=== PATIENT | female | born 1970 ===

== ENCOUNTER 2017-02-20 16:31 | Observation (INO) | payer MEDICAID ==
[2017-02-20 18:04] LABS: ADD MANUAL DIFF? NO
[2017-02-20 18:12] LABS: PH,URINE 6.5 (4.7-8.0); URINE BILIRUBIN NEGATIVE (NEGATIVE); URINE BLOOD SMALL (NEGATIVE); URINE GLUCOSE (UA) NEGATIVE (NEGATIVE); URINE KETONE NEGATIVE (NEGATIVE); URINE LEUKOCYTE ESTERASE NEGATIVE Leu/uL (NEGATIVE); URINE PROTEIN NEGATIVE mg/dL (<30 mg/dL); URINE UROBILINOGEN 0.2 E.U./dL (<1 E.U./dL)
[2017-02-20 18:15] LABS: ALB/GLOB RATIO 1.1 (1.1-1.8); ALKALINE PHOSPHATASE 62 U/L (38-133); ALT/SGPT 30 U/L (7-56); AST/SGOT 27 U/L (15-39); BILIRUBIN,TOTAL 0.6 mg/dL (0.2-1.3); BLOOD UREA NITROGEN 9 mg/dL (7-21); CARBON DIOXIDE 28 mmol/L (21-33); CHLORIDE 100 mmol/L (98-107); GFR AFRICAN-AMERICAN > 60; GLUCOSE,RANDOM 90 mg/dL (70-110); SODIUM 137 mmol/L (132-148); TOTAL PROTEIN 7.9 g/dL (5.8-8.3)
[2017-02-20 18:16] LABS: URINE APPEARANCE CLEAR (CLEAR); URINE COLOR YELLOW (YELLOW)
--- NOTE | 2017-02-20 18:17 | ED PDOC ---
Arrival/HPI <Twan Tanner - Last Filed: 02/20/17 18:12> <DejahSotoraymon - Last Filed: 02/20/17 19:43> - General Chief Complaint: High Blood Pressure Time Seen by Provider: 02/20/17 17:48 - History of Present Illness Narrative History of Present Illness (Text): 02/20/17 18:12 46-year-old female with one-day duration retrosternal chest discomfort described as pressure. She also reports that she has been having tingling and paresthesias to her left upper extremity and left face for the last week. Patient also states that her blood pressure has been more elevated than usual despite taking her losartan regularly. Denies ripping or tearing sensation/ radiation to the back. No other complaints. (Twan Tanner) Past Medical History - Infectious Disease Hx of Infectious Diseases: None - Tetanus Immunization Tetanus Immunization: Unknown - Reproductive Menopause: No - Past Medical History Past Medical History: No Previous - Cardiac Hx Cardiac Disorders: Yes Hx Hypertension: Yes - Pulmonary Hx Respiratory Disorders: No - Neurological Hx Neurological Disorder: Yes Hx Migraine: Yes Other/Comment: sinus infections - HEENT Hx HEENT Disorder: No - Renal Hx Renal Disorder: No - Endocrine/Metabolic Hx Endocrine Disorders: No - Hematological/Oncological Hx Blood Disorders: No - Integumentary Hx Dermatological Disorder: No - Musculoskeletal/Rheumatological Hx Musculoskeletal Disorders: Yes Hx Arthritis: Yes (RA) - Gastrointestinal Hx Gastrointestinal Disorders: No - Genitourinary/Gynecological Hx Genitourinary Disorders: No - Psychiatric Hx Psychophysiologic Disorder: No Hx Substance Use: No - Surgical History Hx Section: Yes Hx Hysterectomy: Yes Hx Tubal Ligation: Yes Other/Comment: kidney stones - Anesthesia Hx Anesthesia: Yes Hx Anesthesia Reactions: No Hx Malignant Hyperthermia: No - Suicidal Assessment Feels Threatened In Home Enviroment: No <Twan Tanner - Last Filed: 02/20/17 18:12> Family/Social History Family/Social History: Unknown Family HX Smoking Status: Never Smoked Hx Alcohol Use: No Hx Substance Use: No Hx Substance Use Treatment: No <Twan Tanner - Last Filed: 02/20/17 18:12> Allergies/Home Meds <Twan Tanner - Last Filed: 02/20/17 18:12> <Marj Pond - Last Filed: 02/20/17 19:43> Allergies/Adverse Reactions: Allergies seasona Allergy (Uncoded 02/20/17 17:11) CONGESTION Home Medications: Home Meds Medication Instructions Recorded Confirmed Meclizine HCl [Antivert/25] 25 mg PO BID PRN 06/18/14 02/20/17 Acetaminophen [Tylenol 325mg tab] 500 mg PO 02/20/17 Cetirizine HCl [Allergy Relief] 10 mg PO DAILY 02/20/17 02/20/17 Hctz 12.5 12.5 mg PO 02/20/17 Losartan Potassium [Cozaar] 50 mg PO DAILY 02/20/17 02/20/17 Nortriptyline HCl [Pamelor] 10 mg PO DAILY 02/20/17 02/20/17 Zaleplon [Sonata] 5 mg PO PRN PRN 02/20/17 02/20/17 Physical Exam Vital Signs Reviewed: Yes Temperature: Afebrile Blood Pressure: Hypertensive Pulse: Regular Respiratory Rate: Normal Appearance: Positive for: Well-Appearing Pain Distress: None Mental Status: Positive for: Alert and Oriented X 3 <JuliananadiyaTwan - Last Filed: 02/20/17 18:12> <Marj Pond - Last Filed: 02/20/17 19:43> - Physical Exam Narrative Physical Exam (Text): - Review of Systems Constitutional: Normal. absent: Fatigue, Weight Change, Fevers Eyes: Normal ENT: denies sore throat, denies tristhmus Respiratory: Normal. absent: SOB, Cough, Sputum Cardiovascular: Chest pain absent: Palpitations, Syncope Gastrointestinal: Normal. absent: Abdominal Pain, Diarrhea, Nausea, Vomiting Genitourinary: Normal. absent: Dysuria, Frequency, Hematuria, vaginal bleeding Musculoskeletal: Normal. absent: Arthralgias, Back Pain, Neck Pain Skin: no rashes, no erythema Neurological: Paresthesias absent: Focal Weakness Endocrine: Normal Hemo/Lymphatic: Normal Psychiatric: No suicidal or homicidal ideations Physical exam Patient appears age appropriate in no distress, speaking full sentences without difficulty - Systems Exam Head: Present: Atraumatic, Normocephalic Pupils: Present: PERRL Extroacular Muscles: Present: EOMI Conjunctiva: Present: Normal Mouth: Present: Moist Mucous Membranes Neck: Present: Normal Range of Motion. No: MIDLINE TENDERNESS, Paraspinal Tenderness Respiratory/Chest: Present: Clear to Auscultation, Good Air Exchange. No: Respiratory Distress, Accessory Muscle Use, Tachypneic Cardiovascular: Present: Regular Rate and Rhythm, Normal S1, S2, Peripheal Pulses Present. No: Murmurs Abdomen: Present: Normal Bowel Sounds. No: Tenderness, Distention, Peritoneal Signs, Rebound, Guarding Back: Present: Normal Inspection. No: Midline Tenderness, Paraspinal Tenderness Upper Extremity: Present: Normal Inspection. No: Cyanosis, Edema Lower Extremity: Present: Normal Inspection. No: Edema Neurological: Present: GCS=15, Speech Normal, cranial nerves II through XII fully intact with no cerebellar abnormality, neurosensory fully intact. No focal neurological deficits. Skin: Present: Warm, Dry, Normal Color. No: Rashes Lymphatic: Present: OX3, NI, NC Psychiatric: Present: Alert, Oriented x 3, Normal Insight, Normal Concentration (Twan Tanner) Vital Signs Temp Pulse Resp BP Pulse Ox 02/20/17 18:16 87 18 146/90 98 02/20/17 18:00 79 18 183/123 H 98 02/20/17 17:38 98.6 F 88 18 171/100 H 98 02/20/17 17:05 98.6 F 88 18 171/100 H 98 Medical Decision Making <Twan Tanner - Last Filed: 02/20/17 18:12> <Marj Pond - Last Filed: 02/20/17 19:43> ED Course and Treatment: 46-year-old female with a history of hypertension, with left upper extremity and facial paresthesias along with chest pressure and poorly controlled hypertension. No focal neurological deficits on physical examination. Aspirin, nitroglycerin ordered. EKG interpreted by ER physician. Normal sinus. No ST-segment elevations. Normal intervals. patient signed out to Dr. Pond in stable condition, pending labs, reeval, dispo (Twan Tanner) 02/20/17 19:39 Patient endorsed to me by Dr. Tanner with initial c/o of chest discomfort and L side paraesthesias for a week with unremarkable neuro exam with NIHSS of zero and symptoms x 1 week so not a tpa candidate. Given nitro and asa with improvement of cp and initially elevated BP - will need further observation on tele for further evaluation and treatment. Discussed with Dr. Kitchen for placement on the hospitalist service. (Marj Pond) - Lab Interpretations Lab Results: 02/20/17 17:51 02/20/17 17:51 Lab Results 02/20/17 18:00: Urine Color Yellow, Urine Appearance Clear, Urine pH 6.5, Ur Specific [place] 1.015, Urine Protein Negative, Urine Glucose (UA) Negative, Urine Ketones Negative, Urine Blood Small H, Urine Nitrate Negative, Urine Bilirubin Negative, Urine Urobilinogen 0.2, Ur Leukocyte Esterase Negative, Urine RBC 1 - 3, Urine WBC 0 - 2, Ur Epithelial Cells 3 - 4 02/20/17 17:51: WBC 6.8, RBC 3.88, Hgb 11.1 L, Hct 33.2 L, MCV 85.6, MCH 28.6, MCHC 33.4, RDW 14.6 H, Plt Count 265, MPV 9.5, Gran % 55.3, Lymph % (Auto) 31.7 , [place] % (Auto) 8.6 H, Eos % (Auto) 4.1, Baso % (Auto) 0.3, Gran # 3.73, Lymph # 2.1, [place] # 0.6, Eos # 0.3, Baso # 0.02, PT 10.4, INR 0.96, APTT 26.6, Sodium 137, Potassium 4.0, Chloride 100, Carbon Dioxide 28, Anion Gap 13, BUN 9, Creatinine 0.6, Est GFR ( Amer) > 60, Est GFR (Non-Af Amer) > 60, Random Glucose 90, Calcium 9.0, Total Bilirubin 0.6, AST 27, ALT 30, Alkaline Phosphatase 62, Lactate Dehydrogenase 529, Total Creatine Kinase 119, Troponin I < 0.01, NT-Pro-B Natriuret Pep 115, Total Protein 7.9, Albumin 4.2, Globulin 3.8, Albumin/Globulin Ratio 1.1 - RAD Interpretation Radiology Orders: 02/20/17 17:48 HEAD W/O CONTRAST [CT] Stat 02/20/17 17:49 CHEST ONE VIEW [RAD] Stat - Medication Orders Current Medication Orders: Discontinued Medications Aspirin (Aspirin Chewable) 324 mg PO STAT STA Stop: 02/20/17 17:49 Last Admin: 02/20/17 18:04 Dose: 324 MG Nitroglycerin (Nitrostat Sl Tab) 0.3 mg SL STAT STA Stop: 02/20/17 17:49 Last Admin: 02/20/17 18:04 Dose: 0.3 MG Disposition/Present on Arrival - Present on Arrival Any Indicators Present on Arrival: No History of DVT/PE: No History of Uncontrolled Diabetes: No Urinary Catheter: No History of Decub. Ulcer: No History Surgical Site Infection Following: None - Disposition Have Diagnosis and Disposition been Completed?: Yes Disposition Time: 19:00 Patient Plan: Admission <Twan Tanner - Last Filed: 02/20/17 18:12> - Present on Arrival Any Indicators Present on Arrival: No - Disposition Have Diagnosis and Disposition been Completed?: Yes Disposition Time: 19:25 Patient Plan: Observation, Telemetry <Marj Pond - Last Filed: 02/20/17 19:43> - Disposition Diagnosis: Chest pain Disposition: HOSPITALIZED Patient Problems: Current Active Problems Problem Status Diagnosed Chest pain Acute Condition: FAIR Discharge Instructions (ExitCare): Chest Pain (ED) Referrals: Yoselin Madrigal MD [Primary Care Provider] - Follow up with primary
[2017-02-20 18:18] LABS: BASO # 0.02 K/mm3 (0.0-2.0); BASO % 0.3 % (0.0-3.0); EOS # 0.3 (0.0-0.7); EOS % 4.1 % (1.5-5.0); GRAN # 3.73 (1.4-6.5); GRAN % 55.3 % (50.0-68.0); HEMATOCRIT 33.2 % (36.0-48.0); LYMPH # 2.1 (1.2-3.4); LYMPH % 31.7 % (22.0-35.0); MEAN CELL VOLUME 85.6 fL (80.0-105.0); MEAN CORPUSCULAR HEMOGLOBIN 28.6 pg (25.0-35.0); MEAN CORPUSCULAR HGB CONC 33.4 g/dl (31.0-37.0); MEAN PLATELET VOLUME 9.5 fl (7.0-11.0); MONO # 0.6 (0.1-0.6); MONO % 8.6 % (1.0-6.0); PLATELET COUNT 265 10^3/uL (120.0-450.0); RED CELL DISTRIBUTION WIDTH 14.6 % (11.5-14.5); WHITE BLOOD COUNT 6.8 10^3/ul (4.5-11.0)
[2017-02-20 18:19] LABS: INR 0.96 (0.93-1.08); PARTIAL THROMBOPLASTIN TIME 26.6 Seconds (23.7-30.8)
[2017-02-20 18:35] LABS: TROPONIN I < 0.01 ng/mL
[2017-02-20 19:00] LABS: URINE WBC 0 - 2 /hpf (0-6)
--- NOTE | 2017-02-20 19:00 | CT ---
PROCEDURE: CT HEAD WITHOUT CONTRAST. HISTORY: GARCIA, HTN COMPARISON: None available. TECHNIQUE: Axial computed tomography images were obtained through the head/brain without intravenous contrast. Radiation dose: Total exam DLP = 725 mGy-cm. This CT exam was performed using one or more of the following dose reduction techniques: Automated exposure control, adjustment of the mA and/or kV according to patient size, and/or use of iterative reconstruction technique. FINDINGS: HEMORRHAGE: No intracranial hemorrhage. BRAIN: No mass effect or edema. No atrophy or chronic microvascular ischemic changes. VENTRICLES: Unremarkable. No hydrocephalus. CALVARIUM: Unremarkable. PARANASAL SINUSES: Unremarkable as visualized. No significant inflammatory changes. MASTOID AIR CELLS: Unremarkable as visualized. No inflammatory changes. OTHER FINDINGS: None. IMPRESSION: Normal CT of the Head.
[2017-02-20 21:10] VITALS: O2SAT 99
--- NOTE | 2017-02-20 21:32 | CP.PCM.HP ---
<Meño Neal - Last Filed: 02/20/17 21:40> History of Present Illness - History of Present Illness History of Present Illness: 46 F with PMHx of vertigo, HTN, and fibromyalgia presented to [facility] 02/20/17 with complaints of chest pain x 3days. Pt states that she started to experience chest pain and discomfort on saturday described as a pressure discomfort, localized mid substernal, 6/10 in intensity that would worsen with coughing or exertions. She also noted that the chest discomfort it felt as if it was difficult to swallow. Pt reported that she has been checking her BP daily for the past month and it has recently remained elevated in the 170s/90s. She contacted her PMD who increased the dosage of her losartan 50->100mg daily. Pt also noted recent stress on account of sleep apnea and not getting enough sleep. She has been reporting of only sleeping 1-2hrs a night as her usually wakes her up for fear of dying in her sleep. Pt is to have a sleep study conducted to obtain the correct machine and mask, however has not had it done yet. In the ED, ppt received aspirin and nitro, with resolution of chest pain/discomfort symptoms. At the time of examination, pt denied fever, chills, sob, chest pains, palpitations, abdominal pains, n/v/d/c or urinary symptoms. PMHx: vertigo, HTN, sleep apnea, and fibromyalgia PSHx: SHx: Denied tobacco abuse, social etoh, and denied illicit drug use. LMP: Family Hx: Noncontributory Meds: review JAN Allergies: seasonal allergies PMD: Dr. Evans Present on Admission - Present on Admission Any Indicators Present on Admission: No History of DVT/PE: No History of Uncontrolled Diabetes: No Urinary Catheter: No Decubitus Ulcer Present: No Review of Systems - Review of Systems Review of Systems: as per HPI otherwise Negative Past Patient History - Infectious Disease Hx of Infectious Diseases: None - Tetanus Immunizations Tetanus Immunization: Unknown - Past Social History Smoking Status: Never Smoked - CARDIAC Hx Cardiac Disorders: Yes Hx Hypertension: Yes - PULMONARY Hx Respiratory Disorders: No - NEUROLOGICAL Hx Neurological Disorder: Yes Hx Migraine: Yes Other/Comment: sinus infections - HEENT Hx HEENT Problems: No - RENAL Hx Chronic Kidney Disease: No - ENDOCRINE/METABOLIC Hx Endocrine Disorders: No - HEMATOLOGICAL/ONCOLOGICAL Hx Blood Disorders: No - INTEGUMENTARY Hx Dermatological Problems: No - MUSCULOSKELETAL/RHEUMATOLOGICAL Hx Musculoskeletal Disorders: Yes Hx Arthritis: Yes (RA) - GASTROINTESTINAL Hx Gastrointestinal Disorders: No - GENITOURINARY/GYNECOLOGICAL Hx Genitourinary Disorders: No - PSYCHIATRIC Hx Psychophysiologic Disorder: No Hx Substance Use: No - SURGICAL HISTORY Hx Section: Yes Hx Hysterectomy: Yes Hx Tubal Ligation: Yes Other/Comment: kidney stones - ANESTHESIA Hx Anesthesia: Yes Hx Anesthesia Reactions: No Hx Malignant Hyperthermia: No Meds Allergies/Adverse Reactions: Allergies Allergy/AdvReac Type Severity Reaction Status Date / Time seasona Allergy CONGESTION Uncoded 02/20/17 17:11 Physical Exam - Constitutional Appears: Well - Head Exam Head Exam: ATRAUMATIC, NORMAL INSPECTION, NORMOCEPHALIC - Eye Exam Eye Exam: EOMI, Normal appearance, PERRL - ENT Exam ENT Exam: Mucous Membranes Moist, Normal Exam - Neck Exam Neck exam: Positive for: Normal Inspection - Respiratory Exam Respiratory Exam: Clear to Auscultation Bilateral, NORMAL BREATHING PATTERN - Cardiovascular Exam Cardiovascular Exam: REGULAR RHYTHM, +S1, +S2 - GI/Abdominal Exam GI & Abdominal Exam: Normal Bowel Sounds, Soft. absent: Tenderness - Extremities Exam Extremities exam: Positive for: normal inspection - Back Exam Back exam: NORMAL INSPECTION - Neurological Exam Neurological exam: Alert, CN II-XII Intact, Normal Gait, Oriented x3, Reflexes Normal - Psychiatric Exam Psychiatric exam: Normal Affect, Normal Mood - Skin Skin Exam: Dry, Intact, Normal Color, Warm Results - Vital Signs Recent Vital Signs: Last Vital Signs Temp 98.6 F 02/20/17 17:38 Pulse 81 02/20/17 21:09 Resp 19 02/20/17 21:09 BP 160/93 H 02/20/17 21:09 Pulse Ox 99 02/20/17 21:09 - Labs Result Diagrams: 02/20/17 17:51 02/20/17 17:51 Labs: Laboratory Results - last 24 hr 02/20/17 02/20/17 17:51 18:00 WBC 6.8 RBC 3.88 Hgb 11.1 L Hct 33.2 L MCV 85.6 MCH 28.6 MCHC 33.4 RDW 14.6 H Plt Count 265 MPV 9.5 Gran % 55.3 Lymph % (Auto) 31.7 [place] % (Auto) 8.6 H Eos % (Auto) 4.1 Baso % (Auto) 0.3 Gran # 3.73 Lymph # 2.1 [place] # 0.6 Eos # 0.3 Baso # 0.02 PT 10.4 INR 0.96 APTT 26.6 Sodium 137 Potassium 4.0 Chloride 100 Carbon Dioxide 28 Anion Gap 13 BUN 9 Creatinine 0.6 Est GFR ( Amer) > 60 Est GFR (Non-Af Amer) > 60 Random Glucose 90 Calcium 9.0 Total Bilirubin 0.6 AST 27 ALT 30 Alkaline Phosphatase 62 Lactate Dehydrogenase 529 Total Creatine Kinase 119 Troponin I < 0.01 NT-Pro-B Natriuret Pep 115 Total Protein 7.9 Albumin 4.2 Globulin 3.8 Albumin/Globulin Ratio 1.1 Urine Color Yellow Urine Appearance Clear Urine pH 6.5 Ur Specific [place] 1.015 Urine Protein Negative Urine Glucose (UA) Negative Urine Ketones Negative Urine Blood Small H Urine Nitrate Negative Urine Bilirubin Negative Urine Urobilinogen 0.2 Ur Leukocyte Esterase Negative Urine RBC 1 - 3 Urine WBC 0 - 2 Ur Epithelial Cells 3 - 4 Assessment & Plan - Assessment and Plan (Free Text) Assessment: 46 F with PMHx of vertigo, HTN, and fibromyalgia presented to [facility] 02/20/17 with complaints of chest pain x 3 days, currently without symptoms, admitted to tele obs to r/o acs. 1. Atypical Chest pain, resolved - Likely 2/2 sleep apnea - Tele obs - EKG: NSR @ 83 bpm - Trops neg x1, serial trops - Asa 81 mg daily - TSH - Lipid panel 2. Headache, resolved - CTH negative - continue to monitor 3. HTN - currently stable - Continue home meds 4. Chronic Urticari - Cetirizine 10mg daily 5. GI ppx - pepcid 6. DVT ppx - lovenox Seen reviewed and discussed with attending <Damian Kitchen P - Last Filed: 03/03/17 20:16> Results - Vital Signs Recent Vital Signs: Last Vital Signs Temp 98.5 F 02/21/17 12:00 Pulse 79 02/21/17 15:10 Resp 16 02/21/17 12:00 BP 172/104 H 02/21/17 15:10 Pulse Ox 99 02/20/17 21:09 - Labs Result Diagrams: 02/21/17 06:20 02/21/17 06:20 Attending/Attestation - Attestation I have personally seen and examined this patient.: Yes I have fully participated in the care of the patient.: Yes I have reviewed all pertinent clinical information: Yes
[2017-02-21 00:10] VITALS: BMI 34.7
[2017-02-21] MEDS: Acetaminophen 650mg/20.3ml solution UD PO PRN ×2 (03:55→08:07)
[2017-02-21 06:52] LABS: ADD MANUAL DIFF? NO
[2017-02-21 07:16] LABS: CHOLESTEROL 184 mg/dL (130-200)
[2017-02-21 07:17] LABS: BASO # 0.02 K/mm3 (0.0-2.0); BASO % 0.4 % (0.0-3.0); EOS # 0.3 (0.0-0.7); EOS % 5.3 % (1.5-5.0); GRAN # 2.78 (1.4-6.5); GRAN % 52.3 % (50.0-68.0); HEMATOCRIT 33.8 % (36.0-48.0); LYMPH # 1.7 (1.2-3.4); MEAN CELL VOLUME 85.1 fL (80.0-105.0); MEAN CORPUSCULAR HEMOGLOBIN 28.2 pg (25.0-35.0); MEAN CORPUSCULAR HGB CONC 33.1 g/dl (31.0-37.0); MEAN PLATELET VOLUME 9.9 fl (7.0-11.0); MONO # 0.5 (0.1-0.6); PLATELET COUNT 264 10^3/uL (120.0-450.0); RED CELL DISTRIBUTION WIDTH 14.6 % (11.5-14.5); WHITE BLOOD COUNT 5.3 10^3/ul (4.5-11.0)
[2017-02-21 08:42] LABS: ALB/GLOB RATIO 1.1 (1.1-1.8); ALKALINE PHOSPHATASE 56 U/L (38-133); ALT/SGPT 27 U/L (7-56); AST/SGOT 32 U/L (15-39); BILIRUBIN,TOTAL 0.6 mg/dL (0.2-1.3); BLOOD UREA NITROGEN 11 mg/dL (7-21); CALCIUM 8.8 mg/dL (8.4-10.5); CARBON DIOXIDE 27 mmol/L (21-33); CHLORIDE 100 mmol/L (98-107); GFR AFRICAN-AMERICAN > 60; GLUCOSE,RANDOM 90 mg/dL (70-110); POTASSIUM 3.6 mmol/L (3.6-5.0); SODIUM 136 mmol/L (132-148); TOTAL PROTEIN 7.6 g/dL (5.8-8.3)
[2017-02-21 09:01] LABS: TROPONIN I < 0.01 ng/mL
[2017-02-21] MEDS ORDERED: Enoxaparin 40 mg Syringe SC SCH (10:00)
--- NOTE | 2017-02-21 10:25 | RAD ---
PROCEDURE: CHEST RADIOGRAPH, 1 VIEW HISTORY: Chest pain. COMPARISON: 01/31/2015. FINDINGS: LUNGS: Clear. PLEURA: No pneumothorax or pleural fluid seen. CARDIOVASCULAR: No radiographic findings to suggest acute or significant cardiovascular disease. OSSEOUS STRUCTURES: No significant abnormalities. VISUALIZED UPPER ABDOMEN: Normal. OTHER FINDINGS: None. IMPRESSION: No active disease. No acute/significant interval changes.
--- NOTE | 2017-02-21 10:41 | CARD ---
APPROVED REPORT EKG Measurement Heart [id number] <Conclusion> Normal sinus rhythm T wave abnormality, consider anterolateral ischemia Abnormal ECG
--- NOTE | 2017-02-21 10:50 | CARD ---
APPROVED REPORT EKG Measurement Heart [id number] <Conclusion> Normal sinus rhythm Minimal voltage criteria for LVH, may be normal variant Borderline ECG
[2017-02-21 12:41] VITALS: RESP 16; TEMP 98.5
--- NOTE | 2017-02-21 13:54 | CP.PCM.DIS ---
<Jeane De La Garza - Last Filed: 02/21/17 15:47> Provider - Provider Date of Admission: 02/20/17 19:22 Attending physician: Pb Hector MD Primary care physician: Yoselin Madrigal MD Time Spent in preparation of Discharge (in minutes): 45 Diagnosis - Discharge Diagnosis (1) Chest pain Status: Acute (2) Vertigo Status: Chronic (3) Hypertension Status: Chronic (4) RADHA (obstructive sleep apnea) Status: Chronic Hospital Course - Lab Results Lab Results: Most Recent Lab Values WBC 5.3 10^3/ul (4.5-11.0) D 02/21/17 06:20 RBC 3.97 10^6/uL (3.5-6.1) 02/21/17 06:20 Hgb 11.2 gm/dL (12.0-16.0) L 02/21/17 06:20 Hct 33.8 % (36.0-48.0) L 02/21/17 06:20 MCV 85.1 fL (80.0-105.0) 02/21/17 06:20 MCH 28.2 pg (25.0-35.0) 02/21/17 06:20 MCHC 33.1 g/dl (31.0-37.0) 02/21/17 06:20 RDW 14.6 % (11.5-14.5) H 02/21/17 06:20 Plt Count 264 10^3/uL (120.0-450.0) 02/21/17 06:20 MPV 9.9 fl (7.0-11.0) 02/21/17 06:20 Gran % 52.3 % (50.0-68.0) 02/21/17 06:20 Lymph % (Auto) 32.0 % (22.0-35.0) 02/21/17 06:20 [place] % (Auto) 10.0 % (1.0-6.0) H 02/21/17 06:20 Eos % (Auto) 5.3 % (1.5-5.0) H 02/21/17 06:20 Baso % (Auto) 0.4 % (0.0-3.0) 02/21/17 06:20 Gran # 2.78 (1.4-6.5) 02/21/17 06:20 Lymph # 1.7 (1.2-3.4) 02/21/17 06:20 [place] # 0.5 (0.1-0.6) 02/21/17 06:20 Eos # 0.3 (0.0-0.7) 02/21/17 06:20 Baso # 0.02 K/mm3 (0.0-2.0) 02/21/17 06:20 PT 10.4 Seconds (9.9-11.8) 02/20/17 17:51 INR 0.96 (0.93-1.08) 02/20/17 17:51 APTT 26.6 Seconds (23.7-30.8) 02/20/17 17:51 Sodium 136 mmol/L (132-148) 02/21/17 06:20 Potassium 3.6 mmol/L (3.6-5.0) 02/21/17 06:20 Chloride 100 mmol/L (98-107) 02/21/17 06:20 Carbon Dioxide 27 mmol/L (21-33) 02/21/17 06:20 Anion Gap 13 (10-20) 02/21/17 06:20 BUN 11 mg/dL (7-21) 02/21/17 06:20 Creatinine 0.6 mg/dL (0.5-1.4) 02/21/17 06:20 Est GFR ( Amer) > 60 02/21/17 06:20 Est GFR (Non-Af Amer) > 60 02/21/17 06:20 Random Glucose 90 mg/dL (70-110) 02/21/17 06:20 Calcium 8.8 mg/dL (8.4-10.5) 02/21/17 06:20 Total Bilirubin 0.6 mg/dL (0.2-1.3) 02/21/17 06:20 AST 32 U/L (15-39) 02/21/17 06:20 ALT 27 U/L (7-56) 02/21/17 06:20 Alkaline Phosphatase 56 U/L (38-133) 02/21/17 06:20 Lactate Dehydrogenase 529 U/L (333-699) 02/20/17 17:51 Total Creatine Kinase 119 U/L (35-230) 02/20/17 17:51 Troponin I < 0.01 ng/mL 02/21/17 06:20 NT-Pro-B Natriuret Pep 115 pg/mL (0-450) 02/20/17 17:51 Total Protein 7.6 g/dL (5.8-8.3) 02/21/17 06:20 Albumin 4.0 g/dL (3.0-4.8) 02/21/17 06:20 Globulin 3.7 gm/dL 02/21/17 06:20 Albumin/Globulin Ratio 1.1 (1.1-1.8) 02/21/17 06:20 Triglycerides 58 mg/dL (35-160) 02/21/17 06:20 Cholesterol 184 mg/dL (130-200) 02/21/17 06:20 LDL Cholesterol Direct 103 mg/dL (0-129) 02/21/17 06:20 HDL Cholesterol 58 mg/dL (29-60) 02/21/17 06:20 TSH 3rd Generation 2.16 mIU/mL (0.46-4.68) 02/21/17 06:20 Urine Color Yellow (YELLOW) 02/20/17 18:00 Urine Appearance Clear (CLEAR) 02/20/17 18:00 Urine pH 6.5 (4.7-8.0) 02/20/17 18:00 Ur Specific Pablo 1.015 (1.005-1.035) 02/20/17 18:00 Urine Protein Negative mg/dL (<30 mg/dL) 02/20/17 18:00 Urine Glucose (UA) Negative mg/dL (NEGATIVE) 02/20/17 18:00 Urine Ketones Negative mg/dL (NEGATIVE) 02/20/17 18:00 Urine Blood Small (NEGATIVE) H 02/20/17 18:00 Urine Nitrate Negative (NEGATIVE) 02/20/17 18:00 Urine Bilirubin Negative (NEGATIVE) 02/20/17 18:00 Urine Urobilinogen 0.2 E.U./dL (<1 E.U./dL) 02/20/17 18:00 Ur Leukocyte Esterase Negative Cassandra/uL (NEGATIVE) 02/20/17 18:00 Urine RBC 1 - 3 /hpf (0-2) 02/20/17 18:00 Urine WBC 0 - 2 /hpf (0-6) 02/20/17 18:00 Ur Epithelial Cells 3 - 4 /hpf (0-5) 02/20/17 18:00 - Hospital Course Hospital Course: 46 F with PMHx of vertigo, HTN, and fibromyalgia presented to [facility] 02/20/17 with complaints of chest pain x 3days. Pt states that she started to experience chest pain and discomfort on saturday described as a pressure discomfort, localized mid substernal, 6/10 in intensity that would worsen with coughing or exertions. She also noted that the chest discomfort it felt as if it was difficult to swallow. Pt reported that she has been checking her BP daily for the past month and it has recently remained elevated in the 170s/90s. She contacted her PMD who increased the dosage of her losartan 50->100mg daily. Pt also noted recent stress on account of sleep apnea and not getting enough sleep. She has been reporting of only sleeping 1-2hrs a night as her usually wakes her up for fear of dying in her sleep. Pt is to have a sleep study conducted to obtain the correct machine and mask, however has not had it done yet. In the ED, ppt received aspirin and nitro, with resolution of chest pain/discomfort symptoms. At the time of examination, pt denied fever, chills, sob, chest pains, palpitations, abdominal pains, n/v/d/c or urinary symptoms. Upon admission, patient had negative troponin and EKG. Subsequent serial troponins and EKG were normal. Lipid panel and TSH were normal. CXR on admission was negative. She was given a script for outpatient stress test. Because patient was complaining of a headache when admitted, head CT was done and it was negative. Patient is asked to follow up with PMD Dr. Evans upon discharge. Patient is asked to continue her blood pressure medications as prescribed. Follow up with PMD for blood pressure management. Recommend getting out patient sleep study. Patient is given script for outpatient stress test. Patient will be discharged with Ventolin inhaler to take as prescribed. Script sent to [facility] in [facility]. - Date & Time of H&P Date of H&P: 02/21/17 Time of H&P: 13:58 Discharge Exam - Head Exam Head Exam: ATRAUMATIC, NORMAL INSPECTION, NORMOCEPHALIC - Eye Exam Eye Exam: EOMI - ENT Exam ENT Exam: Mucous Membranes Moist - Respiratory Exam Respiratory Exam: Clear to PA & Lateral, NORMAL BREATHING PATTERN. absent: Rales, Rhonchi, Wheezes - Cardiovascular Exam Cardiovascular Exam: REGULAR RHYTHM, +S1, +S2. absent: Diastolic murmur, Gallop , Rubs, Systolic Murmur - GI/Abdominal Exam GI & Abdominal Exam: Normal Bowel Sounds, Soft. absent: Distended, Firm, Guarding, Rigid, Tenderness - Extremities Exam Additional comments: no edema or tenderness - Neurological Exam Neurological exam: Alert, Oriented x3 - Psychiatric Exam Psychiatric exam: Normal Affect, Normal Mood - Skin Skin Exam: Dry, Intact, Normal Color, Warm Discharge Plan - Discharge Medications Prescriptions: Albuterol HFA [Ventolin HFA 90 mcg/actuation (8 g)] 1 puff IH PRN PRN #1 inhaler PRN Reason: Shortness Of Breath - Follow Up Plan Condition: FAIR Disposition: HOME/ ROUTINE Instructions: Chest Pain (DC), Sleep Apnea (DC) Additional Instructions: Patient is asked to follow up with PMD Dr. Evans upon discharge. Patient is asked to continue her blood pressure medications as prescribed. Follow up with PMD for blood pressure management. Recommend getting out patient sleep study. Patient is given script for outpatient stress test. Patient will be discharged with Ventolin inhaler to take as prescribed. Script sent to [facility] in [facility]. Referrals: Yoselin Madrigal MD [Primary Care Provider] - <Pb Hector - Last Filed: 02/21/17 16:48> Provider - Provider Date of Admission: 02/20/17 19:22 Attending physician: Pb Hector MD Primary care physician: Yoselin Madrigal MD Hospital Course - Lab Results Lab Results: Most Recent Lab Values WBC 5.3 10^3/ul (4.5-11.0) D 02/21/17 06:20 RBC 3.97 10^6/uL (3.5-6.1) 02/21/17 06:20 Hgb 11.2 gm/dL (12.0-16.0) L 02/21/17 06:20 Hct 33.8 % (36.0-48.0) L 02/21/17 06:20 MCV 85.1 fL (80.0-105.0) 02/21/17 06:20 MCH 28.2 pg (25.0-35.0) 02/21/17 06:20 MCHC 33.1 g/dl (31.0-37.0) 02/21/17 06:20 RDW 14.6 % (11.5-14.5) H 02/21/17 06:20 Plt Count 264 10^3/uL (120.0-450.0) 02/21/17 06:20 MPV 9.9 fl (7.0-11.0) 02/21/17 06:20 Gran % 52.3 % (50.0-68.0) 02/21/17 06:20 Lymph % (Auto) 32.0 % (22.0-35.0) 02/21/17 06:20 [place] % (Auto) 10.0 % (1.0-6.0) H 02/21/17 06:20 Eos % (Auto) 5.3 % (1.5-5.0) H 02/21/17 06:20 Baso % (Auto) 0.4 % (0.0-3.0) 02/21/17 06:20 Gran # 2.78 (1.4-6.5) 02/21/17 06:20 Lymph # 1.7 (1.2-3.4) 02/21/17 06:20 [place] # 0.5 (0.1-0.6) 02/21/17 06:20 Eos # 0.3 (0.0-0.7) 02/21/17 06:20 Baso # 0.02 K/mm3 (0.0-2.0) 02/21/17 06:20 PT 10.4 Seconds (9.9-11.8) 02/20/17 17:51 INR 0.96 (0.93-1.08) 02/20/17 17:51 APTT 26.6 Seconds (23.7-30.8) 02/20/17 17:51 Sodium 136 mmol/L (132-148) 02/21/17 06:20 Potassium 3.6 mmol/L (3.6-5.0) 02/21/17 06:20 Chloride 100 mmol/L (98-107) 02/21/17 06:20 Carbon Dioxide 27 mmol/L (21-33) 02/21/17 06:20 Anion Gap 13 (10-20) 02/21/17 06:20 BUN 11 mg/dL (7-21) 02/21/17 06:20 Creatinine 0.6 mg/dL (0.5-1.4) 02/21/17 06:20 Est GFR ( Amer) > 60 02/21/17 06:20 Est GFR (Non-Af Amer) > 60 02/21/17 06:20 Random Glucose 90 mg/dL (70-110) 02/21/17 06:20 Calcium 8.8 mg/dL (8.4-10.5) 02/21/17 06:20 Total Bilirubin 0.6 mg/dL (0.2-1.3) 02/21/17 06:20 AST 32 U/L (15-39) 02/21/17 06:20 ALT 27 U/L (7-56) 02/21/17 06:20 Alkaline Phosphatase 56 U/L (38-133) 02/21/17 06:20 Lactate Dehydrogenase 529 U/L (333-699) 02/20/17 17:51 Total Creatine Kinase 119 U/L (35-230) 02/20/17 17:51 Troponin I < 0.01 ng/mL 02/21/17 06:20 NT-Pro-B Natriuret Pep 115 pg/mL (0-450) 02/20/17 17:51 Total Protein 7.6 g/dL (5.8-8.3) 02/21/17 06:20 Albumin 4.0 g/dL (3.0-4.8) 02/21/17 06:20 Globulin 3.7 gm/dL 02/21/17 06:20 Albumin/Globulin Ratio 1.1 (1.1-1.8) 02/21/17 06:20 Triglycerides 58 mg/dL (35-160) 02/21/17 06:20 Cholesterol 184 mg/dL (130-200) 02/21/17 06:20 LDL Cholesterol Direct 103 mg/dL (0-129) 02/21/17 06:20 HDL Cholesterol 58 mg/dL (29-60) 02/21/17 06:20 TSH 3rd Generation 2.16 mIU/mL (0.46-4.68) 02/21/17 06:20 Urine Color Yellow (YELLOW) 02/20/17 18:00 Urine Appearance Clear (CLEAR) 02/20/17 18:00 Urine pH 6.5 (4.7-8.0) 02/20/17 18:00 Ur Specific Pablo 1.015 (1.005-1.035) 02/20/17 18:00 Urine Protein Negative mg/dL (<30 mg/dL) 02/20/17 18:00 Urine Glucose (UA) Negative mg/dL (NEGATIVE) 02/20/17 18:00 Urine Ketones Negative mg/dL (NEGATIVE) 02/20/17 18:00 Urine Blood Small (NEGATIVE) H 02/20/17 18:00 Urine Nitrate Negative (NEGATIVE) 02/20/17 18:00 Urine Bilirubin Negative (NEGATIVE) 02/20/17 18:00 Urine Urobilinogen 0.2 E.U./dL (<1 E.U./dL) 02/20/17 18:00 Ur Leukocyte Esterase Negative Cassandra/uL (NEGATIVE) 02/20/17 18:00 Urine RBC 1 - 3 /hpf (0-2) 02/20/17 18:00 Urine WBC 0 - 2 /hpf (0-6) 02/20/17 18:00 Ur Epithelial Cells 3 - 4 /hpf (0-5) 02/20/17 18:00 Attending/Attestation - Attestation I have personally seen and examined this patient.: Yes I have fully participated in the care of the patient.: Yes I have reviewed all pertinent clinical information, including history, physical exam and plan: Yes Notes (Text): I have seen and examined patient at bedside with the resident. Agree with the resident's note with the following addition/ exception: This is 46 year old female with history of vertigo, HTN, RADHA, obesity who got admitted for evaluation of chest pain which has been going on for the past few days. Serial troponins are negative. One of the EKG showed Twave changes in anterolateral leads. Patients chest pain has resolved now. She informed us that she has difficulty sleeping and need another sleep study for adjustment of pressure settings. Her BP has been high for the past few days. Her losartan was increased from 50 mg to 100 mg 4 days ago. She was not compliant with that. Today her chest pain has resolved. She had headache and wants to sleep. She is requesting to go home. Discussed with ged tutor. Arranged for outpatient stress test. Upon discharge patient will follow up with Dr Rod Evans. Dr Pb eHctor
[2017-02-21 15:12] VITALS: BP 172/104; PULSE 79
--- NOTE | 2017-02-21 15:26 | CARD ---
APPROVED REPORT EKG Measurement Heart [id number] [id number] <Conclusion> Normal sinus rhythm Left ventricular hypertrophy STTW changes
== END 2017-02-21 16:02 | disposition home or self-care (01) ==
LOC: ED 16:31 → ERH 19:22 → 2RNO 21:15
PROVIDERS: ADMIT Internal Medicine; ATTEND Hospitalist
DX: R07.89 Other chest pain (principal); R20.9 Unspecified disturbances of skin sensation; I10 Essential (primary) hypertension; R51 Headache; R42 Dizziness and giddiness; G47.33 Obstructive sleep apnea (adult) (pediatric); M79.7 Fibromyalgia
CPT/HCPCS: 36415; 70450; 71010; 80053; 80061; 81001; 82550; 83615; 83880; 84443; 84484; 85025; 85610; 85730; 93005; 99285; G0378; J1650

== ENCOUNTER 2017-12-09 17:08 | Emergency (ER) | payer MEDICAID ==
[2017-12-09 17:09] VITALS: BMI 34.7
[2017-12-09 17:34] VITALS: TEMP 99.2; O2SAT 99
--- NOTE | 2017-12-09 18:06 | ED PDOC ---
Arrival/HPI - General Chief Complaint: Dizziness/Lightheaded Time Seen by Provider: 12/09/17 17:34 Historian: Patient - History of Present Illness Narrative History of Present Illness (Text): you were treated in the ED today for history of vertigo and you take meclizine, hypertension and you take losartan and hydrochlorothyozide and now with chest pain which is generalized with mild sob with exertion but otherwise without any nausea/vomiting/headache/dizziness/abdomen pain/numbness/tingling/loss of limb function/pain with urination/travel/prior blood clots/prior cancer/prior hormonal use. 12/09/17 18:02 Time/Duration: Other (2 days) Symptom Course: Intermittent Quality: Aching Severity Level: 2 Activities at Onset: Rest Context: Sitting Past Medical History - Provider Review Nursing Documentation Reviewed: Yes - Travel History Have you recently traveled outside [place] w/in the past 3 mons?: No - Infectious Disease Hx of Infectious Diseases: None - Tetanus Immunization Tetanus Immunization: Unknown - Past Medical History Past Medical History: No Previous - Cardiac Hx Cardiac Disorders: Yes Hx Hypertension: Yes - Pulmonary Hx Respiratory Disorders: Yes Hx Bronchitis: Yes Hx Sleep Apnea: Yes - Neurological Hx Neurological Disorder: Yes Hx Migraine: Yes Hx Vertigo: Yes Other/Comment: sinus infections - HEENT Hx HEENT Disorder: No - Renal Hx Renal Disorder: No - Endocrine/Metabolic Hx Endocrine Disorders: No - Hematological/Oncological Hx Blood Disorders: No - Integumentary Hx Dermatological Disorder: No - Musculoskeletal/Rheumatological Hx Musculoskeletal Disorders: Yes Hx Arthritis: Yes (RA) - Gastrointestinal Hx Gastrointestinal Disorders: Yes Hx Gastritis: Yes - Genitourinary/Gynecological Hx Genitourinary Disorders: No - Psychiatric Hx Psychophysiologic Disorder: No Hx Substance Use: No - Surgical History Hx Section: Yes Hx Hysterectomy: Yes Hx Tubal Ligation: Yes Other/Comment: kidney stones - Anesthesia Hx Anesthesia: Yes Hx Anesthesia Reactions: No Hx Malignant Hyperthermia: No - Suicidal Assessment Feels Threatened In Home Enviroment: No Family/Social History - Physician Review Nursing Documentation Reviewed: Yes Family/Social History: No Known Family HX Smoking Status: Never Smoked Hx Alcohol Use: No Hx Substance Use: No Hx Substance Use Treatment: No Allergies/Home Meds Allergies/Adverse Reactions: Allergies grass pollen Allergy (Verified 12/09/17 17:22) URTICARIA Home Medications: Home Meds Medication Instructions Recorded Confirmed Meclizine HCl [Antivert] 25 mg PO BID PRN 06/18/14 12/09/17 Acetaminophen [Tylenol 325mg tab] 500 mg PO PRN PRN 02/20/17 Cetirizine HCl [Allergy Relief] 10 mg PO DAILY 02/20/17 12/09/17 Hctz 12.5 12.5 mg PO 02/20/17 Nortriptyline HCl [Pamelor] 10 mg PO DAILY 02/20/17 12/09/17 Zaleplon [Sonata] 5 mg PO PRN PRN 02/20/17 12/09/17 Review of Systems - Review of Systems Constitutional: Normal Eyes: Normal ENT: Normal Respiratory: SOB Cardiovascular: Chest Pain Gastrointestinal: Normal Genitourinary Female: Normal Musculoskeletal: Normal Skin: Normal Neurological: Normal Endocrine: Normal Hemo/Lymphatic: Normal Psychiatric: Normal Physical Exam Vital Signs Reviewed: Yes Vital Signs Temp Pulse Resp BP Pulse Ox 12/09/17 17:33 99.2 F 100 H 18 132/67 99 Temperature: Afebrile Blood Pressure: Hypertensive Pulse: Regular Respiratory Rate: Normal Appearance: Positive for: Well-Appearing, Non-Toxic, Comfortable Pain Distress: None Mental Status: Positive for: Alert and Oriented X 3 - Systems Exam Head: Present: Atraumatic, Normocephalic Pupils: Present: PERRL Extroacular Muscles: Present: EOMI Conjunctiva: Present: Normal Ears: Present: Normal Mouth: Present: Moist Mucous Membranes Pharnyx: Present: Normal Nose (External): Present: Atraumatic Nose (Internal): Present: Normal Inspection Neck: Present: Normal Range of Motion Respiratory/Chest: Present: Clear to Auscultation, Good Air Exchange Cardiovascular: Present: Regular Rate and Rhythm Abdomen: No: Tenderness, Distention, Normal Bowel Sounds, Peritoneal Signs, Rebound, Guarding, McBurney's Point Tender, Rovsing's Sign Present, Hernias, Feeding Tubes, Ostomy Tubes, Mass/Organomegaly, Scars, Other Back: Present: Normal Inspection Upper Extremity: Present: Normal Inspection Lower Extremity: Present: Normal Inspection Neurological: Present: GCS=15, CN II-XII Intact, Speech Normal, Motor Func Grossly Intact Skin: Present: Warm, Normal Color Psychiatric: Present: Alert, Oriented x 3, Normal Insight, Normal Concentration Medical Decision Making ED Course and Treatment: you were treated in the ED today for history of vertigo and you take meclizine, hypertension and you take losartan and hydrochlorothyozide and now with chest pain which is generalized with mild sob with exertion for 2-3 days but otherwise without any nausea/vomiting/headache/dizziness/abdomen pain/numbness/ tingling/loss of limb function/pain with urination/travel/prior blood clots/ prior cancer/prior hormonal use. You were otherwise breathing easily, pink/ moist lips, smiling and talking easily, good strength/sensation, alert/oriented , walking easily, clear lungs, no abdomen tenderness, no fever temp 99.2, stable heart rate 100, stable breathing rate 18, excellent oxygen level 99% room air, elevated blood pressure 132/67 which we recommend repeat in 2-3 days primary care office to determine further treatment, you have blood tests no infection count 6, stable blood level hemoglobin 10/platelets 351, stable chemistry, except mildly low potassium 3.4 which was supplemented, heart blood test negative, urine test negative, radiology chest xray initial no acute findings, ECG normal sinus rhythm, aspirin done in the ED with improvement, you wanted to be discharged home, counselled to monitor pain. 1. Recommend take daily aspirin 81mg by mouth over the counter for heart protection. 2. Recommend follow-up primary care 1-2 days to review symptoms, referral to cardiology clinic. 3. If any worsening pain, fever, chills, nausea, vomiting, difficulty breathing, numbness, loss of limb function, pain with urination or any medical condition then return to the ED. 12/09/17 18:05 PERC negative 12/09/17 19:07 12/09/17 19:08 12/09/17 19:09 12/09/17 19:29 12/09/17 19:31 influenza negative - Lab Interpretations Lab Results: 12/09/17 17:50 12/09/17 17:50 Lab Results 12/09/17 17:54: POC Glucose (mg/dL) 90 12/09/17 17:50: Influenza Typ A,B (EIA) Negative for flu a/b 12/09/17 17:50: Sodium 137, Potassium 3.4 L, Chloride 101, Carbon Dioxide 26, Anion Gap 13, BUN 11, Creatinine 0.6 L, Est GFR ( Amer) > 60, Est GFR ( Non-Af Amer) > 60, Random Glucose 96, Calcium 9.5, Magnesium 1.9, Total Bilirubin 0.5, AST 26, ALT 26, Alkaline Phosphatase 55, Lactate Dehydrogenase 503, Total Creatine Kinase 66, Troponin I < 0.01, NT-Pro-B Natriuret Pep 23.5, Total Protein 7.7, Albumin 4.2, Globulin 3.5, Albumin/Globulin Ratio 1.2 12/09/17 17:50: Urine Color Yellow, Urine Appearance Sl cloudy, Urine pH 6.5, Ur Specific [place] 1.020, Urine Protein Negative, Urine Glucose (UA) Negative, Urine Ketones Negative, Urine Blood Small H, Urine Nitrate Negative, Urine Bilirubin Negative, Urine Urobilinogen 0.2, Ur Leukocyte Esterase Negative, Urine RBC 2 - 5, Urine WBC 0 - 2, Ur Epithelial Cells 1 - 3, Urine Bacteria Few 12/09/17 17:50: PT 11.3, INR 0.99, APTT 28.8 12/09/17 17:50: WBC 6.3, RBC 4.12, Hgb 10.6 L, Hct 33.1 L, MCV 80.3, MCH 25.7, MCHC 32.0, RDW 15.7 H, Plt Count 351, MPV 9.8, Gran % 58.5, Lymph % (Auto) 25.2 , [place] % (Auto) 13.1 H, Eos % (Auto) 3.0, Baso % (Auto) 0.2, Gran # 3.68, Lymph # 1.6, Stewart # 0.8 H, Eos # 0.2, Baso # 0.01 I have reviewed the lab results: Yes - RAD Interpretation Radiology Orders: 12/09/17 18:01 CHEST TWO VIEWS (PA/LAT) [RAD] Stat - EKG Interpretation Interpreted by ED Physician: Yes (normal sinus rhythm, flipped t waves avr) Type: 12 lead EKG - Medication Orders Current Medication Orders: Discontinued Medications Aspirin (Aspirin) 325 mg PO STAT STA Stop: 12/09/17 18:02 Last Admin: 12/09/17 18:45 Dose: 325 mg Potassium Chloride (K-Dur 20 Meq Er Tab) 40 meq PO STAT STA Stop: 12/09/17 19:07 Disposition/Present on Arrival - Present on Arrival Any Indicators Present on Arrival: No History of DVT/PE: No History of Uncontrolled Diabetes: No Urinary Catheter: No History of Decub. Ulcer: No History Surgical Site Infection Following: None - Disposition Have Diagnosis and Disposition been Completed?: Yes Diagnosis: Chest pain Disposition: HOME/ ROUTINE Disposition Time: 19:30 Patient Plan: Discharge Patient Problems: Current Active Problems Problem Status Onset Chest pain Acute Condition: IMPROVED Discharge Instructions (ExitCare): Chest Pain (ED) Additional Instructions: you were treated in the ED today for history of vertigo and you take meclizine, hypertension and you take losartan and hydrochlorothyozide and now with chest pain which is generalized with mild sob with exertion for 2-3 days but otherwise without any nausea/vomiting/headache/dizziness/abdomen pain/numbness/ tingling/loss of limb function/pain with urination/travel/prior blood clots/ prior cancer/prior hormonal use. You were otherwise breathing easily, pink/ moist lips, smiling and talking easily, good strength/sensation, alert/oriented , walking easily, clear lungs, no abdomen tenderness, no fever temp 99.2, stable heart rate 100, stable breathing rate 18, excellent oxygen level 99% room air, elevated blood pressure 132/67 which we recommend repeat in 2-3 days primary care office to determine further treatment, you have blood tests no infection count 6, stable blood level hemoglobin 10/platelets 351, stable chemistry, except mildly low potassium 3.4 which was supplemented, heart blood test negative, urine test negative, radiology chest xray initial no acute findings, ECG normal sinus rhythm, aspirin done in the ED with improvement, you wanted to be discharged home, counselled to monitor pain. 1. Recommend take daily aspirin 81mg by mouth over the counter for heart protection. 2. Recommend follow-up primary care 1-2 days to review symptoms, referral to cardiology clinic. 3. If any worsening pain, fever, chills, nausea, vomiting, difficulty breathing, numbness, loss of limb function, pain with urination or any medical condition then return to the ED. Referrals: Cristina Ventura DO [Primary Care Provider] - Follow up with primary Forms: [employer] ([place]ian)
[2017-12-09 18:27] LABS: BASO # 0.01 K/mm3 (0.0-2.0); BASO % 0.2 % (0.0-3.0); EOS # 0.2 (0.0-0.7); GRAN # 3.68 (1.4-6.5); GRAN % 58.5 % (50.0-68.0); HEMOGLOBIN 10.6 g/dL (12.0-16.0); LYMPH # 1.6 (1.2-3.4); LYMPH % 25.2 % (22.0-35.0); MEAN CELL VOLUME 80.3 fl (80.0-105.0); MEAN CORPUSCULAR HEMOGLOBIN 25.7 pg (25.0-35.0); MEAN PLATELET VOLUME 9.8 fl (7.0-11.0); MONO # 0.8 (0.1-0.6); MONO % 13.1 % (1.0-6.0); RBC 4.12 10^6/uL (3.5-6.1); RED CELL DISTRIBUTION WIDTH 15.7 % (11.5-14.5); WHITE BLOOD COUNT 6.3 10^3/ul (4.5-11.0)
[2017-12-09 18:29] LABS: PH,URINE 6.5 (4.7-8.0); URINE BILIRUBIN NEGATIVE (NEGATIVE); URINE BLOOD SMALL (NEGATIVE); URINE GLUCOSE (UA) NEGATIVE (NEGATIVE); URINE LEUKOCYTE ESTERASE NEGATIVE Leu/uL (NEGATIVE); URINE NITRATE NEGATIVE (NEGATIVE); URINE PROTEIN NEGATIVE mg/dL (<30 mg/dL); URINE UROBILINOGEN 0.2 E.U./dL (<1 E.U./dL)
[2017-12-09 18:30] LABS: URINE APPEARANCE SL CLOUDY (CLEAR); URINE COLOR YELLOW (YELLOW)
[2017-12-09 18:37] LABS: INR 0.99 (0.93-1.08); PARTIAL THROMBOPLASTIN TIME 28.8 Seconds (25.1-36.5); PROTHROMBIN TIME 11.3 SECONDS (9.4-12.5)
[2017-12-09 18:43] LABS: ALB/GLOB RATIO 1.2 (1.1-1.8); ALBUMIN 4.2 g/dL (3.0-4.8); ALT/SGPT 26 U/L (7-56); AST/SGOT 26 U/L (14-36); BLOOD UREA NITROGEN 11 mg/dL (7-21); CALCIUM 9.5 mg/dL (8.4-10.5); GFR AFRICAN-AMERICAN > 60; GFR NON-AFRICAN AMERICAN > 60; MAGNESIUM 1.9 mg/dL (1.7-2.2)
[2017-12-09 18:51] LABS: B-TYPE NATRIURETIC PEPTIDE 23.5 pg/mL (0-450); TROPONIN I < 0.01 ng/mL
[2017-12-09 18:53] LABS: URINE WBC 0 - 2 /hpf (0-6)
[2017-12-09 18:54] LABS: URINE BACTERIA FEW (NEG)
[2017-12-09] MEDS ORDERED: Potassium Chloride 20 mEq ER Tab PO STA (19:06)
[2017-12-09 19:42] VITALS: BP 130/70; PULSE 95; RESP 17
--- NOTE | 2017-12-10 08:13 | RAD ---
HISTORY: 47yoF, chest pain COMPARISON: 02/20/2017 TECHNIQUE: Chest PA and lateral FINDINGS: LUNGS: No active pulmonary disease. PLEURA: No significant pleural effusion identified. No pneumothorax apparent. CARDIOVASCULAR: Normal. OSSEOUS STRUCTURES: No significant abnormalities. VISUALIZED UPPER ABDOMEN: Normal. OTHER FINDINGS: None. IMPRESSION: No active disease.
--- NOTE | 2017-12-10 10:59 | CARD ---
APPROVED REPORT EKG Measurement Heart [id number] 126P25 [id number] <Conclusion> Normal sinus rhythm Possible Left atrial enlargement ST abnormality, possible digitalis effect Abnormal ECG
== END 2017-12-09 19:57 | disposition home or self-care (01) ==
LOC: ED 17:08
DX: R07.9 Chest pain, unspecified (principal); I10 Essential (primary) hypertension

== ENCOUNTER 2018-02-07 06:15 | Emergency (ER) | payer MEDICAID ==
[2018-02-07 06:16] VITALS: BMI 34.7
[2018-02-07 06:33] VITALS: BP 183/98; PULSE 88; RESP 17; TEMP 98.7; O2SAT 98
--- NOTE | 2018-02-07 07:19 | ED PDOC ---
Arrival/HPI - General Chief Complaint: Abdominal Pain Time Seen by Provider: 02/07/18 07:08 Historian: Patient - History of Present Illness Narrative History of Present Illness (Text): 02/07/18 07:15 pt p/w + 3 weeks onset of waxing and waning lower abd/pelvic cramps/pain; at most pain is 9-10/10; pt states pain got worse last night and decided to come to ED this morning; pt states she also noted longer than usual menstrual cycle, pt has been having her menses since 01/20; pt states the volume is unchanged; pt states no fever/chills/sweats, pt states she took motrin 800mg with some relief ; pt states no cp/sob/palpitations, no n/v, no new numbness/tingling, no dysuria /bowel changes, no fall/trauma/sick contact, no travel; pt denied other complaints; pt is here for further eval. PCP: Dr Ventura LMP: 2/3 (usually 5 days) Time/Duration: > week (3 weeks) Symptom Onset: Gradual Symptom Course: Intermittent Quality: Tightness, Cramping Severity Level: 9, Severe Activities at Onset: Rest Context: Home Past Medical History - Provider Review Nursing Documentation Reviewed: Yes - Travel History Have you recently traveled outside [place] w/in the past 3 mons?: No - Past History Past History: No Previous - Infectious Disease Hx of Infectious Diseases: None - Tetanus Immunization Tetanus Immunization: Unknown - Reproductive Menopause: No Currently : No - Past Medical History Past Medical History: No Previous - Cardiac Hx Cardiac Disorders: Yes Hx Hypertension: Yes - Pulmonary Hx Respiratory Disorders: Yes Hx Bronchitis: Yes Hx Sleep Apnea: Yes - Neurological Hx Neurological Disorder: Yes Hx Migraine: Yes Hx Vertigo: Yes Other/Comment: sinus infections - HEENT Hx HEENT Disorder: No - Renal Hx Renal Disorder: No - Endocrine/Metabolic Hx Endocrine Disorders: No - Hematological/Oncological Hx Blood Disorders: No - Integumentary Hx Dermatological Disorder: No - Musculoskeletal/Rheumatological Hx Musculoskeletal Disorders: Yes Hx Arthritis: Yes (RA) - Gastrointestinal Hx Gastrointestinal Disorders: Yes Hx Gastritis: Yes - Genitourinary/Gynecological Hx Genitourinary Disorders: No - Psychiatric Hx Psychophysiologic Disorder: No Hx Substance Use: No - Surgical History Hx Section: Yes Hx Hysterectomy: Yes Hx Tubal Ligation: Yes Other/Comment: kidney stones - Anesthesia Hx Anesthesia: Yes Hx Anesthesia Reactions: No Hx Malignant Hyperthermia: No - Suicidal Assessment Feels Threatened In Home Enviroment: No Family/Social History - Physician Review Nursing Documentation Reviewed: Yes Family/Social History: No Known Family HX Smoking Status: Never Smoked Hx Alcohol Use: Yes Frequency of alcohol use: Socially Hx Substance Use: No Hx Substance Use Treatment: No Allergies/Home Meds Allergies/Adverse Reactions: Allergies grass pollen Allergy (Verified 12/09/17 17:22) URTICARIA Home Medications: Home Meds Medication Instructions Recorded Confirmed Meclizine HCl [Antivert] 25 mg PO BID PRN 06/18/14 02/07/18 Cetirizine HCl [Allergy Relief] 10 mg PO DAILY 02/20/17 02/07/18 Nortriptyline HCl [Pamelor] 10 mg PO DAILY 02/20/17 02/07/18 Zaleplon [Sonata] 5 mg PO PRN PRN 02/20/17 02/07/18 Cholecalciferol (Vitamin D3) 2,000 unit PO DAILY 02/07/18 02/07/18 [Vitamin D3] Cyclobenzaprine [Cyclobenzaprine 10 mg PO DAILY PRN 02/07/18 02/07/18 HCl] DULoxetine [Cymbalta] 60 mg PO DAILY 02/07/18 02/07/18 Gabapentin [Neurontin] 400 mg PO TID 02/07/18 02/07/18 Ibuprofen [Motrin Tab] 800 mg PO Q6 PRN 02/07/18 02/07/18 Omeprazole 40 mg PO DAILY 02/07/18 02/07/18 Oxycodone HCl/Acetaminophen 1 tab PO PRN PRN 02/07/18 02/07/18 [Percocet 10-325 mg Tablet] hydroCHLOROthiazide [Hydrodiuril] 25 mg PO DAILY 02/07/18 02/07/18 Review of Systems - Review of Systems Constitutional: Normal Eyes: Normal ENT: Normal Respiratory: Normal Cardiovascular: Normal Gastrointestinal: Abdominal Pain. absent: Nausea, Vomiting Genitourinary Female: Vaginal Bleeding (prolonged menses). absent: Dysuria, Frequency Musculoskeletal: Back Pain, Other (mild right lower back pain) Skin: Normal Neurological: Normal Endocrine: Normal Hemo/Lymphatic: Normal Psychiatric: Normal Physical Exam Vital Signs Reviewed: Yes Vital Signs Temp Pulse Resp BP Pulse Ox 02/07/18 06:30 98.7 F 88 17 183/98 H 98 Temperature: Afebrile Blood Pressure: Hypertensive Pulse: Regular Respiratory Rate: Normal Appearance: Positive for: Well-Appearing, Non-Toxic, Uncomfortable, Other (alert /awake, resting in bed, talking on her cellphone; NAD, uncomfortable during exam , GCS = 15, cooperative, follows command with ease) Pain Distress: None Mental Status: Positive for: Alert and Oriented X 3 - Systems Exam Head: Present: Atraumatic, Normocephalic Pupils: Present: PERRL, Other (no nystagmus, no photophobia, sclera anicteric) Extroacular Muscles: Present: EOMI Conjunctiva: Present: Normal Ears: Present: Normal Mouth: Present: Moist Mucous Membranes, Normal Teeth, Other (no drooling/stridor , no exudate/lesions, uvula/tongue are midline) Pharnyx: Present: Normal Nose (External): Present: Atraumatic Nose (Internal): Present: Normal Inspection Neck: Present: Normal Range of Motion, Trachea Midline, Other (no step off, no nuchal rigidity/meningeal signs; intact ROM). No: MIDLINE TENDERNESS Respiratory/Chest: Present: Clear to Auscultation, Good Air Exchange, Other ( CTA b/l, no w/r/r, no accessory muscle use noted, no tachypenia) Cardiovascular: Present: Regular Rate and Rhythm, Normal S1, S2. No: Murmurs Abdomen: Present: Normal Bowel Sounds, Other (mild suprapubic tenderness, well nourished/slightly obese female, no masses/rebound/guarding/rigidity, no archibald' s sign, no mcburney's point tenderness, no psoas/obturator sign) Genitourinary/Pelvic Exam: Present: Other (pt left AMA) Back: Present: Normal Inspection, Other (no midline tenderness, no step off, intact ROM). No: CVA Tenderness, Midline Tenderness Upper Extremity: Present: Normal Inspection, Normal ROM, NORMAL PULSES, Neurovascularly Intact, Capillary Refill < 2s, Other (moving all limbs with ease ; strength 5/5 grossly intact in all limbs) Lower Extremity: Present: Normal Inspection, NORMAL PULSES, Normal ROM, Neurovascularly Intact, Capillary Refill < 2 s, Other (+ ambulatory). No: CALF TENDERNESS Neurological: Present: GCS=15, CN II-XII Intact, Speech Normal Skin: Present: Warm, Normal Color, Other (cap refill < 1sec, no ulcerations, no petechiae, no rashes) Psychiatric: Present: Alert, Oriented x 3 Medical Decision Making ED Course and Treatment: 02/07/18 07:22 Impression: lower abd/pelvic pain x 3 weeks, vaginal bleeding i have consider all the differential diagnosis regarding pt's chief medical complaints/clinical findings, including but are not limited to: lower abd/ pelvic pain x 3 weeks, vaginal bleeding; likely DUB, r/o fibroids; unlikely appy ; r/o UTI/infections A/P: lower abd/pelvic pain x 3 weeks; vaginal bleeding - labs - iv - us, and if inconclusive, recommend CT - supportive care - observe 02/07/18 07:44 Nurse made me aware that patient just called her son and is requesting to leave AMA and does not want any labs/tests done at the moment; when asked why she changed her mind, pt states i didnt understand her. Nurse Taz, who also spoke patient's language, reconfirm pt's requests and reasons; pt states she wants to leave AMA. Patient is made aware that potential life-threatening illness remains and pt can lose limb/or worse case, can Patient is aware that she is to see Her doctor as soon as possible patient is aware that if she changes her mind, she is encouraged to return to ED immediately for further care/management patient expressed understanding pt did not want/refused her vital signs repeated even though she is made aware that her inital BP was elevated Re-evaluation Time: 07:44 Reassessment Condition: Unchanged - Lab Interpretations Narrative Lab Interpretation (Text): 02/07/18 07:52 PT LEFT AMA - RAD Interpretation Narrative RAD Interpretations (Text): 02/07/18 07:52 Pt Left AMA - Medication Orders Current Medication Orders: Discontinued Medications Ketorolac Tromethamine (Toradol) 30 mg IVP STAT STA Stop: 02/07/18 07:10 Disposition/Present on Arrival - Present on Arrival Any Indicators Present on Arrival: No History of DVT/PE: No History of Uncontrolled Diabetes: No Urinary Catheter: No History of Decub. Ulcer: No History Surgical Site Infection Following: None - Disposition Have Diagnosis and Disposition been Completed?: Yes Diagnosis: Pelvic pain, Abdominal pain, Vaginal bleeding, abnormal, Elevated blood pressure reading Disposition: AGAINST MEDICAL ADVICE Disposition Time: 07:47 (AMA) Condition: STABLE Discharge Instructions (ExitCare): Hypertension (ED), Dysfunctional Uterine Bleeding (ED), Acute Abdomen (Belly Pain) Print Language: BURK[place] Additional Instructions: you are leaving against medical advice potential life-threatening illness remains and pt can lose limb/or worse case, can you are to see your doctor as soon as possible if you change your mind, you are encouraged to return to ED immediately for further care/management Referrals: Cristina Ventura, [Primary Care Provider] - Follow up with primary Forms: [employer] ([place]), [employer] ([place])
== END 2018-02-07 07:45 | disposition left against medical advice (07) ==
LOC: ED 06:15
DX: R10.2 Pelvic and perineal pain (principal); N93.9 Abnormal uterine and vaginal bleeding, unspecified; R03.0 Elevated blood-pressure reading, without diagnosis of hypertension; I10 Essential (primary) hypertension